=== PATIENT | male | born 1980 | race Caucasian/White ===

== ENCOUNTER 2017-10-16 09:51 | Emergency (ER) | payer OTHER, MEDICAID ==
[~2017-10-16] VITALS: Ht 170.2 cm; Wt 68.0 kg
[~2017-10-16 09:51] MED LIST: ACETAMINOPHEN-1 EAC1 PO; AMOXICILLIN 50500 MG PO; CELEXA 20 MG TA20 MG; CIPROFLOXACIN500 M1 PO; CITRATE OF MAG296 ML PO; CLONAZEPAM; DARVOCET-N 1001 EACH PO; FLOMAX PO; HYDROCODONE-AP1 EAC6 PO; IBUPROFEN 800800 M1 PO; KEPPRA 500 MG500 M1 PO; LEXAPRO; NOHOMEMEDICATIONS; NORCO 5-325 TA1 EACH PO; PERCOCET 5-3251 EACH PO; PHENERGAN 25 MG25 M1 PO; PHENERGAN25 MG RE; REMERON 30 MG T30 M1; RISPERIDONE 1 MG1 MG; SENNA; TAMSULOSIN HCL0.4 MG PO; XANAX 0.5 MG0.5 MG
[2017-10-16] MEDS ORDERED: CLONAZEPAM 1 MG1 M1 PO (10:08)
[2017-10-16 10:16] LABS: URINE BILIRUBIN NEGATIVE (Negative); URINE BLOOD NEGATIVE (Negative); URINE CLARITY CLEAR; URINE COLOR YELLOW; URINE GLUCOSE-RANDOM NEGATIVE (Negative); URINE KETONES NEGATIVE (Negative); URINE LEUKOCYTES-REFLEX NEGATIVE (Negative); URINE NITRITE-REFLEX NEGATIVE (Negative); URINE PROTEIN NEGATIVE (Negative); URINE UROBILINOGEN 0.2 E.U./dl (0.2-1.0)
[2017-10-16 10:16] LABS: ABSOLUTE EOSINOPHILS 0.1 thou/uL (0.0-0.7); ABSOLUTE LYMPHOCYTES 1.8 thou/uL (0.8-5.3); ABSOLUTE MONOCYTES 0.4 thou/uL (0.0-1.2); ABSOLUTE NEUTROPHILS 5.2 thou/uL (1.6-8.1); BASOPHILS 0.6 %; EOSINOPHILS 1.8 %; HEMATOCRIT 54.5 % (42.0-52.0); HEMOGLOBIN 18.4 gm/dL (14.0-18.0); LYMPHOCYTES 24.2 %; MCHC 33.8 g/dL (28.0-37.0); MCV 94.7 fL (80.0-100.0); MONOCYTES 5.2 %; MPV 7.9 fl. (7.2-11.1); NUCLEATED RBCS 0 /100WBC; PLATELET COUNT* 250 thou/uL (150-400); POLYS 68.2 %; RBC 5.75 mil/uL (4.50-6.00); RDW-CV 13.3 % (10.5-14.5); WBC 7.6 thou/uL (4.0-11.0)
[2017-10-16 10:40] LABS: CALCIUM 10.4 mg/dL (8.5-10.1); CREATININE 1.1 mg/dL (0.6-1.3); POTASSIUM 4.9 mmol/L (3.5-5.1)
[2017-10-16 10:44] LABS: ALBUMIN 4.3 g/dL (3.4-5.0); TOTAL BILIRUBIN 0.6 mg/dL (<0.1-1.0); TOTAL PROTEIN 8.2 g/dL (6.4-8.2)
[2017-10-16 11:17] LABS: AMP/METHAMP Negative (Negative); BARBITURATES Negative (Negative); BENZODIAZEPINES POSITIVE (Negative); COCAINE Negative (Negative); METHADONE Negative (Negative); OPIATES Negative (Negative); PCP Negative (Negative); THC POSITIVE (Negative)
[2017-10-16 12:00] LABS: SALICYLATE 4.4 mg/dL (2.8-20.0)
[2017-10-16 12:01] LABS: ACETAMINOPHEN < 2 ug/mL (10-30); ALCOHOL < 10 mg/dL (<10)
[2017-10-17 15:32] VITALS: BP 114/85
== END 2017-10-17 15:42 | disposition home or self-care (01) ==
LOC: M.ERS 09:51
PROVIDERS: Emergency Medicine Emergency Medical Services
DX: R45.851 Suicidal ideations (principal); F32.9 Major depressive disorder, single episode, unspecified; F41.9 Anxiety disorder, unspecified; Z87.442 Personal history of urinary calculi; Z79.899 Other long term (current) drug therapy

== ENCOUNTER → 2017-11-04 | Outpatient (CLI) | payer OTHER, MEDICAID ==
[~2017-11-04] MED LIST changes: +CLONAZEPAM 1 MG1 M1 PO; +NORCO 5-325 TA1 EAC1 PO; +VITAMIN B-12500 MCG PO
== END ==
LOC: M.RAD 11:50
DX: R07.81 Pleurodynia (principal); R07.89 Other chest pain; R56.9 Unspecified convulsions; W19.XXXA Unspecified fall, initial encounter

== ENCOUNTER 2017-11-17 17:48 | Emergency (ER) | payer OTHER, MEDICAID ==
[~2017-11-17] VITALS: Ht 170.2 cm; Wt 68.0 kg
[~2017-11-17 17:48] MED LIST changes: -NORCO 5-325 TA1 EAC1 PO; -VITAMIN B-12500 MCG PO
[2017-11-17] MEDS ORDERED: VITAMIN B-12500 MCG PO (18:08)
[2017-11-17] MEDS ORDERED: NORCO 5-325 TA1 EAC1 PO (19:00)
[2017-11-17 19:31] VITALS: BP 119/70
== END 2017-11-17 19:33 | disposition home or self-care (01) ==
LOC: M.ERS 17:48
DX: S42.002A Fracture of unspecified part of left clavicle, initial encounter for closed fracture (principal); F31.9 Bipolar disorder, unspecified; F41.9 Anxiety disorder, unspecified; Z87.442 Personal history of urinary calculi; Z88.8 Allergy status to other drugs, medicaments and biological substances; W10.8XXA Fall (on) (from) other stairs and steps, initial encounter; Y93.89 Activity, other specified; Y92.89 Other specified places as the place of occurrence of the external cause; Y99.8 Other external cause status

== ENCOUNTER 2018-06-05 18:34 | Emergency (ER) | payer OTHER, MEDICAID ==
[~2018-06-05] VITALS: Ht 172.7 cm; Wt 72.6 kg
[~2018-06-05 18:34] MED LIST changes: +NORCO 5-325 TA1 EAC1 PO; +VITAMIN B-12500 MCG PO
[2018-06-05 19:21] LABS: ABSOLUTE EOSINOPHILS 0.2 thou/uL (0.0-0.7); ABSOLUTE LYMPHOCYTES 1.2 thou/uL (0.8-5.3); ABSOLUTE MONOCYTES 0.5 thou/uL (0.0-1.2); ABSOLUTE NEUTROPHILS 7.3 thou/uL (1.6-8.1); BASOPHILS 0.5 %; EOSINOPHILS 2.6 %; HEMATOCRIT 39.9 % (42.0-52.0); HEMOGLOBIN 13.2 gm/dL (14.0-18.0); MCH 30.7 pg (26.0-34.0); MCHC 33.2 g/dL (28.0-37.0); MCV 92.4 fL (80.0-100.0); MONOCYTES 5.5 %; MPV 7.6 fl. (7.2-11.1); NUCLEATED RBCS 0 /100WBC; PLATELET COUNT* 229 thou/uL (150-400); POLYS 78.4 %; RBC 4.32 mil/uL (4.50-6.00); WBC 9.3 thou/uL (4.0-11.0)
[2018-06-05 19:39] LABS: ALBUMIN 3.1 g/dL (3.4-5.0); CALCIUM 9.8 mg/dL (8.5-10.1); CREATININE 0.9 mg/dL (0.6-1.3); POTASSIUM 3.6 mmol/L (3.5-5.1); TOTAL BILIRUBIN 0.1 mg/dL (<0.1-1.0); TOTAL PROTEIN 6.7 g/dL (6.4-8.2)
[2018-06-05] MEDS ORDERED: CLEOCIN HCL300 MG PO (20:40)
[2018-06-05] MEDS ORDERED: NORCO 5-325 TA1 EACH PO (20:40)
[2018-06-05] MEDS ORDERED: NAPROSYN500 MG PO (20:40)
[2018-06-05 21:05] VITALS: BP 149/92
== END 2018-06-05 21:09 | disposition home or self-care (01) ==
LOC: M.ERS 18:34
PROVIDERS: Nurse Practitioner Family
DX: K04.7 Periapical abscess without sinus (principal); F31.9 Bipolar disorder, unspecified; F41.9 Anxiety disorder, unspecified; Z88.8 Allergy status to other drugs, medicaments and biological substances; Z87.442 Personal history of urinary calculi

== ENCOUNTER 2018-07-18 00:39 | Emergency (ER) | payer OTHER, MEDICAID ==
[~2018-07-18] VITALS: Ht 167.6 cm; Wt 69.2 kg
--- NOTE | ~2018-07-18 | CON ---
[address] [address] CONSULTATION Name: COURTNEYMONROE M [id number] Admission: 07/18/18 Attend Phys: Discharge: 07/18/18 Date of : 80 Report #: [id number] THIS REPORT FOR: //name// CC: Maury Eubanks Lad DICTATED BY: Jason Fiore DO DATE OF SERVICE: 07/18/2018 HISTORY OF PRESENT ILLNESS: This is a 37-year-old male who presented to the ED for evaluation of his right ankle. He states he was walking in the [place] when he slipped and fell and hurt his ankle. He attempted to walk on after this and was unable to bear weight. He noted a deformity to the ankle. He denies any numbness or tingling of the right lower extremity. He denies any pain to any other extremity. He denies knee pain. PAST MEDICAL HISTORY: Significant for suicidal ideation, bipolar disorder, anxiety, epilepsy, depression and kidney stones. PAST SURGICAL HISTORY: None. FAMILY HISTORY: Noncontributory. SOCIAL HISTORY: Smokes 1/2 pack a day of cigarettes and occasional marijuana use. Denies alcohol use. MEDICATIONS: Clonazepam. ALLERGIES: KEPPRA AND ANTIHISTAMINES. REVIEW OF SYSTEMS: A 12-point review of systems obtained and negative except for HPI. PHYSICAL EXAMINATION: VITAL SIGNS: Height 167 cm, weight 69 kilograms, pulse 103, blood pressure 145/79. GENERAL: Alert, in no acute distress. HEENT: Head: Normocephalic, atraumatic. Eyes: Extraocular movements intact. Ears: Normal hearing. Nose: Nares patent. NECK: Supple, nontender. BACK: Nontender. LUNGS: No respiratory distress, no accessory muscle use. CARDIOVASCULAR: Normal peripheral perfusion. ABDOMEN: Soft, nontender. NEUROLOGIC: Gross [place] [address] CONSULTATION Name: MONROE VALDEZ Room: [facility]#: [id number] Admission: 07/18/18 Attend Phys: Discharge: 07/18/18 Date of : 80 Report #: [id number] SKIN: Warm and dry. PSYCHIATRIC: Normal mood and affect. MUSCULOSKELETAL: On examination of the right lower extremity, there is obvious deformity to the right ankle. There are no open wounds. There is no skin tenting. There is a palpable dorsalis pedis and posterior tibialis pulse. Sensation is intact to light touch throughout the entire right lower extremity. Compartments are soft and compressible. There is no pain with passive stretch. Motor is intact to flexion and extension of all toes. The foot appears warm and well perfused. RADIOGRAPHS: Multiple views of the right ankle were obtained in the Emergency Department demonstrating a supination external rotation bimalleolar ankle fracture dislocation. Post-reduction radiographs demonstrate improved alignment. IMPRESSION: Right bimalleolar ankle fracture dislocation. PLAN: Findings discussed in detail with the patient today. We did recommend closed reduction under conscious sedation in the Emergency Department. This was performed without complication. He was placed in a well-padded AO splint. We discussed that this injury will need operative intervention. He did have some significant soft tissue swelling noted on exam today. We discussed that we need to allow the swelling to subside prior to proceeding with any operative intervention. We will have him maintain the splint and nonweightbearing to the right lower extremity. We will have him follow up in the orthopedic clinic in 1 week for further surgical planning. PROCEDURE NOTE: Conscious sedation was provided by the ER physician. Closed reduction was performed of the right ankle. A well-padded AO splint was then applied. Post-reduction radiographs were taken, which demonstrated acceptable reduction of the fracture dislocation. Neurovascular status was unchanged post reduction. By: [id number] Pedro DO /marina
[~2018-07-18 00:39] MED LIST changes: +CLEOCIN HCL300 MG PO; +NAPROSYN500 MG PO
[2018-07-18] MEDS ORDERED: HYDROCODONE-AP1 EAC6 PO (02:02)
[2018-07-18 03:28] VITALS: BP 127/83
== END 2018-07-18 03:28 | disposition home or self-care (01) ==
LOC: M.ERS 00:39
DX: S82.841A Displaced bimalleolar fracture of right lower leg, initial encounter for closed fracture (principal); F41.9 Anxiety disorder, unspecified; F31.9 Bipolar disorder, unspecified; F17.210 Nicotine dependence, cigarettes, uncomplicated; Z88.8 Allergy status to other drugs, medicaments and biological substances; Z87.442 Personal history of urinary calculi; W18.39XA Other fall on same level, initial encounter; Y93.89 Activity, other specified; Y92.89 Other specified places as the place of occurrence of the external cause; Y99.8 Other external cause status

== ENCOUNTER 2018-07-21 18:06 | Inpatient (IN) | payer OTHER, MEDICAID ==
[~2018-07-21] VITALS: Ht 170.2 cm; Wt 70.3 kg
[2018-07-21 18:19] VITALS: BP 141/87
[2018-07-21 19:37] LABS: ABSOLUTE EOSINOPHILS 0.1 thou/uL (0.0-0.7); ABSOLUTE LYMPHOCYTES 1.1 thou/uL (0.8-5.3); ABSOLUTE MONOCYTES 0.4 thou/uL (0.0-1.2); ABSOLUTE NEUTROPHILS 3.3 thou/uL (1.6-8.1); BASOPHILS 0.5 %; EOSINOPHILS 1.7 %; HEMATOCRIT 33.8 % (42.0-52.0); HEMOGLOBIN 11.5 gm/dL (14.0-18.0); LYMPHOCYTES 22.5 %; MCH 31.2 pg (26.0-34.0); MCHC 33.9 g/dL (28.0-37.0); MONOCYTES 8.7 %; MPV 7.8 fl. (7.2-11.1); NUCLEATED RBCS 0 /100WBC; PLATELET COUNT* 238 thou/uL (150-400); POLYS 66.6 %; RBC 3.68 mil/uL (4.50-6.00); RDW-CV 13.7 % (10.5-14.5); WBC 4.9 thou/uL (4.0-11.0)
[2018-07-21 19:43] LABS: CALCIUM 9.1 mg/dL (8.5-10.1); CREATININE 0.9 mg/dL (0.6-1.3); POTASSIUM 3.6 mmol/L (3.5-5.1)
[2018-07-21 19:47] LABS: ALBUMIN 3.5 g/dL (3.4-5.0); TOTAL BILIRUBIN 0.5 mg/dL (<0.1-1.0); TOTAL PROTEIN 6.7 g/dL (6.4-8.2)
[2018-07-21 19:48] LABS: APTT 28.7 Seconds (25.0-31.3); PROTIME 9.9 Seconds (9.20-11.50)
[2018-07-21 21:03] LABS: ESR (SEDRATE) 11 mm/hr (0-15)
[2018-07-21 21:58] VITALS: BP 135/85
[2018-07-21 22:00] VITALS: BP 131/75
[2018-07-22 07:41] VITALS: BP 127/84
--- NOTE | 2018-07-23 07:08 | CON ---
[address] [address] CONSULTATION Name: MONROE VALDEZ Room: [address] IN ..#: [id number] Admission: 07/21/18 Attend Phys: Mohsen Lynn MD Discharge: 07/22/18 Date of : 80 Report #: [id number] THIS REPORT FOR: //name// CC: Maury Lynn DATE OF SERVICE: 07/22/2018 HISTORY OF PRESENT ILLNESS: This is a 37-year-old gentleman who was admitted through the Emergency Room with pain and prior history of fracture to his right lower extremity ankle area. The patient's initial presentation to this hospital was 07/18/2018, had a fracture dislocation of his ankle on the right leg, appropriately had that reduced, splinted and was released at that time. The patient was to be seen later by Orthopedics. In any event, the patient presents back to the hospital with this visit. Actually in the Emergency Room, he had to take it down and look at his legs. He was having some increasing pain in it. He was also told on the prior visit of course with a fractured ankle not to walk on it and he admits to them that he had been walking on it. He tells me he lives at home with his mother. He is down in the basement and has to go down steps to get there. He can somehow do that without putting weight on the leg, but then also slipped on a slick floor and fell on to that leg again. The patient's initial injury was when he was out in the field, apparently had to crawl about a half mile through mud and was weightbearing on this extremity initially anyway to get to the area where he could seek care. In any event, today this patient is somewhat agitated, just concerned about his ankle area, the swelling that he has, the pain that he has. He had been on Toradol initially for some of his pain control. Prior to that, was on some hydrocodone as well. He is not on antibiotics, but will necessarily need antibiotics and orders will be placed for that. In any event, today he will have new radiographs taken of his ankle again after splint was reapplied. The patient as far as his history goes otherwise, he does have a very complicated history. PAST MEDICAL HISTORY: Numerous for depression, bipolar, multiple psychotic hospitalizations with bouts of psychosis and john and depression as well. He is focusing on multiple renal stones, as he has got about 200. He has had seizure disorder states it was 7 a day, now it is down to about one a day and that is about as good as he can get. ALLERGIES: CODEINE HE QUOTED AND ANTIHISTAMINES WELL, HE QUOTED WITH THAT. SOCIAL HISTORY: Per the ER records as well, he has recreational use of marijuana and meth. No alcohol consumption. REVIEW OF SYMPTOMS: CONSTITUTIONAL: He denies any fevers or chills. RESPIRATORY: Denies any cough, [place] [address] CONSULTATION Name: MONROE VALDEZ Room: [address] IN [facility]#: [id number] Admission: 07/21/18 Attend Phys: Mohsen Lynn MD Discharge: 07/22/18 Date of : 80 Report #: [id number] CARDIOVASCULAR: Denies any chest pains currently. NEUROLOGIC: Denies any tingling to the lower extremities or the upper extremities. He does demonstrate musculoskeletal complaint of pain and swelling in his right lower extremity. PHYSICAL EXAMINATION: VITAL SIGNS: His latest pulse is 99, respirations 14, 141/87 is BP, 100% O2 sat. He did have a hemoglobin of 11.5 with a white count that was 4.9 with normal differential. BUN slightly elevated at 20. C-reactive protein 73.2 and his ESR was 11. GENERAL: He is definitely alert and is oriented. He is somewhat cooperative. He comes in and out of being able to talk to him appropriately and then at times he just disgruntled and complains that people have not listened to him. At this point in time, otherwise, the patient on the other hand has normal facial appearance. HEENT: Normocephalic. Sclerae white. Mucous membranes are moist. NECK: Soft. CHEST: Demonstrates respiratory normal rate with no accessory use of muscles are detected, no audible wheezes are noted. ABDOMEN: Flat. EXTREMITIES: He has definitely good pulses upper extremity. MUSCULOSKELETAL: The entire splint dressing, he started removing it and has been walking in the room, so we took it off anyway to examine his leg on the right side. Lower extremity on the left side is completely normal on clinical appearance and with motion. The right lower extremity from the knee down demonstrates some ecchymosis, soft tissue edema starting on the proximal lower leg region with all soft compartments; however, but he does demonstrate large numerous edema blisters. Most of them had been popped, some of these extend 10 cm x 10 cm in length to the medial mid calf region, also posterior medial demonstrates at least a 6 cm circumferential area of some grade 2 at least skin loss area just posterior to the medial malleolus. He demonstrates also likewise grade 1 ulcerated blister edema changes to the dorsal left foot just below the toe areas. On the lateral side, he has small blister that is evident beneath the fibula region and also some extending proximally towards the fibula. The patient can wiggle his toes appropriately. Sensation is totally normal to this foot. All compartments again are soft. Majority of his pain is on the medial side. The patient at this point in time otherwise, his radiographs taken did demonstrate previous reduction that was appropriate position. New x-rays will be taken today as we put him in a well-padded Pérez posterior splint dressing with a coaptation splint adjacent to that as well. We elevated him on 2 pillows. Overall, clinical impression is complex trimalleolar fracture dislocation history with significant edema blisters and early cellulitis to the lower [place] [address] CONSULTATION Name: MONROE VALDEZ Room: [address] IN [facility].#: [id number] Admission: 07/21/18 Attend Phys: Mohsen Lynn MD Discharge: 07/22/18 Date of : 80 Report #: [id number] PLAN: We had lengthy discussion for at least 30 minutes in the room while we were examining him and talking to him. I told him more than likely he needs to probably be here a couple of days just to observe and watch this, appropriately get him some antibiotics, started on this and keep that leg elevated in a controlled setting and then at some point in time over the next 2 weeks to 3, hopefully fracture can be fixated. I did, initially upon seeing the clinical appearance of this from the get go entering the room, I told him how he did have a serious injury where he had to crawl and walk through that field to get to seek care and then just from the nature of the injury and the fracture dislocation that these edema blisters are secondary to that as well that there is a possibility he may lose that lower leg. The patient at times says, "you cannot just take that leg off and get going on," but I told him our goal is to get this treated first and save that as last resort by all means. He is seeking possibility just leaving AMA. He says he is not sure he can even spend one night here in this hospital, so I said at least let us do what we need to do to appropriately protect this ankle and that is splinting him today and he was in agreement with that at least. The patient will be given pain medication of course while he is here, we will get him started on the antibiotics and just see where he leads us. I did tell him we had geriatric social worker that is definitely available to help him for any potential transition type things that we need to do to help him as well to seek better care for the lower extremity and deal with his family situations that sound like they are numerous that he is trying to deal with. In any event, if available a psych consult would be appropriate for this gentleman as well as I am not sure when his last one was. From the orthopedic standpoint, we will watch and observe him and definitely follow him very closely for this. We will get a post-splint x-ray and see what that shows. If there is subluxation of any major degrees and/or if there is dislocation, he would have to go to the OR to have it reduced under sedation and then splint reapplied. At this point in time, I am not comfortable to put an external fixator on this leg. I definitely could do it without any problem, but his situation at home did not leave him the best options to care for this. Possibility of walking on next fix could be even worse. Again, it is my pleasure seeing and taking care of this gentleman today. We will be available for the entire hospital duration. <ELECTRONICALLY SIGNED> By: Jose Mendez DO 07/23/18 [id number] mya Cooper
--- NOTE | 2018-07-23 14:08 | CON ---
[address] [address] CONSULTATION Name: MONROE VALDEZ Room: [address] IN ..#: [id number] Admission: 07/21/18 Attend Phys: Mohsen Lynn MD Discharge: 07/22/18 Date of : 80 Report #: [id number] THIS REPORT FOR: //name// CC: Maury Lynn DATE OF SERVICE: 07/22/2018 INFECTIOUS DISEASE CONSULTATION ATTENDING PHYSICIAN: Mohsen Lynn MD REASON FOR EVALUATION: Post complicated ankle fracture with immobilization via cast felt to be secondarily infected. HISTORY OF PRESENT ILLNESS: Chart reviewed, patient examined. This is a 37-year-old man with uncontrolled bipolar disorder, who presented to the Emergency Room earlier this month on the apparently sustaining an ankle fracture. This was reduced, casted, was tentatively scheduled for surgery at a later date. Apparently due to his situation and reportedly he is homeless, he has been walking on it. It continued to cause him significant amount of pain. He noted he had bullous lesions and is felt to have increasing inflammation. It is not clear that he had fevers. He is somewhat tangential and difficult to get a history from. He reappeared and was subsequently admitted. Due to concern about infectious complication, he was started empirically on combination therapy with ceftriaxone and vancomycin. Denies any significant pulmonary or gastrointestinal related complaints, states he had been a long period without eating too much. He has more recently had had access to some food. ALLERGIES: To ANTIHISTAMINES and LEVETIRACETAM. MEDICINE: Include enoxaparin, divalproex, nicotine, acetaminophen, Haldol, ceftriaxone, hydrocodone, vancomycin, clonazepam, ondansetron. PAST MEDICAL HISTORY: As noted above, history of bipolar, apparently has polysubstance abuse as well, anxiety, seizure disorder, and history of renal lithiasis. SOCIAL HISTORY: Smokes cigarettes. No ethanol. FAMILY HISTORY: Noncontributory. REVIEW OF SYSTEMS: Limited as above. PHYSICAL EXAMINATION: GENERAL: He is alert, cooperative. He does make eye contact, [place] [address] CONSULTATION Name: COURTNEYMONROE M Room: [address]#: [id number] Admission: 07/21/18 Attend Phys: Mohsen Lynn MD Discharge: 07/22/18 Date of : 80 Report #: [id number] somewhat on edge, appears undernourished. VITAL SIGNS: Temperature 98.5, pulse 84, respirations 16, blood pressure 127/84. SKIN: Warm, dry. HEENT: Normocephalic. Extraocular muscles are intact. NECK: Supple. LUNGS: Diminished breath sounds. HEART: Regular. I do not appreciate any murmur. ABDOMEN: Soft, nontender, nondistended. EXTREMITIES: He has got a immobilizing compression dressing over his right lower extremity to below the knee. He has got a large bullous lesion noted on the dorsum of the foot as well as the leg. He notes there is an additional one that is not accessible on the medial malleolar site. LABORATORY AND X-RAY DATA: Electrolytes; sodium 143, potassium 3.6, chloride 107, bicarbonate is 20, anion gap of 8, BUN and creatinine 20 and 0.9, glucose of 96. LFTs are unremarkable. Albumin of 3.5. Total protein 6.5. Estimated GFR of 95. PT of 9.98, INR of 1.0, CRP of 73.2. Lactic acid of 0.6. Ankle x-ray showed medial malleolar oblique fracture through the fibula, dorsal soft tissue swelling. Sed rate was 11. CBC; white count 4.9, H and H 11.5 and 33, platelets of 238. Blood cultures are sterile thus far. ASSESSMENT: Post right ankle fracture complicated by bullous-type eruption, is difficult to ascertain. I think it is reasonable to continue empiric antimicrobial therapy, certainly at risk for infectious complications. I tried to press the importance of offloading his foot, it is not clear that he understands the gravity of the situation. <ELECTRONICALLY SIGNED> By: Jerardo Payton MD 07/23/18 1408 [id number] Payton MD /nt
== END 2018-07-22 16:50 | disposition left against medical advice (07) | DRG 603 ==
LOC: M.ERS 18:06 → M.ORTHSURG 20:27 → M.TBA-ER 20:27 → M.ORTHSURG 21:51
PROVIDERS: Nurse Practitioner Family; ADMIT Internal Medicine
PROC: 2W3LX1Z Immobilization of Right Lower Extremity using Splint (ICD-10-PCS; principal; 2018-07-21)
DX: L03.115 Cellulitis of right lower limb (principal); S82.51XA Displaced fracture of medial malleolus of right tibia, initial encounter for closed fracture; F41.9 Anxiety disorder, unspecified; F31.9 Bipolar disorder, unspecified; X58.XXXA Exposure to other specified factors, initial encounter; W10.9XXA Fall (on) (from) unspecified stairs and steps, initial encounter; F15.90 Other stimulant use, unspecified, uncomplicated; F12.90 Cannabis use, unspecified, uncomplicated; F17.210 Nicotine dependence, cigarettes, uncomplicated; G40.909 Epilepsy, unspecified, not intractable, without status epilepticus; Z87.442 Personal history of urinary calculi; Z79.1 Long term (current) use of non-steroidal anti-inflammatories (NSAID); Z88.8 Allergy status to other drugs, medicaments and biological substances; Y93.89 Activity, other specified; Y92.89 Other specified places as the place of occurrence of the external cause; Y99.8 Other external cause status; Z88.6 Allergy status to analgesic agent; Z59.0 Homelessness; Z91.14 Patient's other noncompliance with medication regimen

== ENCOUNTER 2018-10-22 23:16 | Emergency (ER) | payer OTHER, MEDICAID ==
[~2018-10-22] VITALS: Ht 172.7 cm; Wt 69.4 kg
[2018-10-22 23:53] LABS: URINE BILIRUBIN NEGATIVE (Negative); URINE BLOOD NEGATIVE (Negative); URINE CLARITY CLEAR; URINE COLOR YELLOW; URINE GLUCOSE-RANDOM NEGATIVE (Negative); URINE KETONES NEGATIVE (Negative); URINE LEUKOCYTES NEGATIVE (Negative); URINE NITRITE NEGATIVE (Negative); URINE PROTEIN NEGATIVE (Negative); URINE UROBILINOGEN 0.2 E.U./dl (0.2-1.0)
[2018-10-23 00:01] LABS: HEMATOCRIT 37.2 % (42.0-52.0); HEMOGLOBIN 12.8 gm/dL (14.0-18.0); MCH 31.3 pg (26.0-34.0); MCHC 34.4 g/dL (28.0-37.0); MCV 90.9 fL (80.0-100.0); MPV 7.4 fl. (7.2-11.1); RBC 4.1 mil/uL (4.50-6.00); RDW-CV 14.5 % (10.5-14.5); WBC 6.7 thou/uL (4.0-11.0)
[2018-10-23 00:01] LABS: AMP/METHAMP Negative (Negative); BARBITURATES Negative (Negative); BENZODIAZEPINES POSITIVE (Negative); COCAINE Negative (Negative); METHADONE Negative (Negative); OPIATES Negative (Negative); PCP Negative (Negative); THC POSITIVE (Negative)
[2018-10-23 00:09] LABS: CALCIUM 9.3 mg/dL (8.5-10.1); POTASSIUM 4.1 mmol/L (3.5-5.1)
[2018-10-23 00:14] LABS: ALBUMIN 3.3 g/dL (3.4-5.0); TOTAL BILIRUBIN 0.1 mg/dL (<0.1-1.0); TOTAL PROTEIN 6.5 g/dL (6.4-8.2)
[2018-10-23 00:18] LABS: ACETAMINOPHEN < 2 ug/mL (10-30); SALICYLATE < 2.8 mg/dL (2.8-20.0)
[2018-10-23 00:19] LABS: ALCOHOL < 10 mg/dL (<10)
--- NOTE | 2018-10-23 11:22 | EKG ---
[place] [address] ELECTROCARDIOGRAM REPORT Name: MONROE VALDEZ Room: [facility]#: [id number] Admission: 10/22/18 Attend Phys: Discharge: Date of : 80 Report #: [id number] THIS REPORT FOR: //name// [facility] ED Test Date: 2018-10-22 Test Time: 23:51:06 Pat Name: MONROE VALDEZ Department: Room: Gender: Presales Engineer: ANKUR : 1980 Requested By: Helen Kong Order Number: [id number] MD: Maury Camilo Measurements Intervals [place] Rate: 67 P: 22 OK: 145 QRS: 26 QRSD: 98 T: 60 QT: 381 QTc: 403 Interpretive Statements Sinus rhythm ST elev, probable normal early repol pattern No previous ECG available for comparison Electronically Signed On 10-23-2018 11:21:56 CDT by Maury Camilo [email or web address] <ELECTRONICALLY SIGNED> By: Maury Camilo MD, [facility] 10/23/18 1121 2351 2351 Maury Camilo MD, FACC /EPI
[2018-10-23 14:26] VITALS: BP 112/65
== END 2018-10-23 14:27 ==
LOC: M.ERS 23:16
PROVIDERS: Personal Emergency Response Attendant
DX: F32.9 Major depressive disorder, single episode, unspecified (principal); M25.571 Pain in right ankle and joints of right foot; M25.471 Effusion, right ankle; F41.9 Anxiety disorder, unspecified; F17.200 Nicotine dependence, unspecified, uncomplicated; Z87.442 Personal history of urinary calculi; Z86.69 Personal history of other diseases of the nervous system and sense organs; Z88.1 Allergy status to other antibiotic agents

== ENCOUNTER 2019-07-11 18:40 | Emergency (ER) | payer OTHER, MEDICAID ==
[~2019-07-11] VITALS: Ht 167.6 cm; Wt 65.8 kg
[2019-07-11 19:05] LABS: HEMATOCRIT 42.9 % (42.0-52.0); HEMOGLOBIN 14.9 gm/dL (14.0-18.0); MCH 31.6 pg (26.0-34.0); MCHC 34.8 g/dL (28.0-37.0); MCV 90.7 fL (80.0-100.0); MPV 7.3 fl. (7.2-11.1); RBC 4.73 mil/uL (4.50-6.00); WBC 6.1 thou/uL (4.0-11.0)
[2019-07-11 19:07] LABS: URINE BILIRUBIN NEGATIVE (Negative); URINE BLOOD 1+ (Negative); URINE CLARITY CLEAR; URINE COLOR YELLOW; URINE GLUCOSE-RANDOM NEGATIVE (Negative); URINE KETONES NEGATIVE (Negative); URINE LEUKOCYTES NEGATIVE (Negative); URINE NITRITE NEGATIVE (Negative); URINE PROTEIN NEGATIVE (Negative); URINE UROBILINOGEN 0.2 E.U./dl (0.2-1.0)
[2019-07-11 19:15] LABS: AMP/METHAMP POSITIVE (Negative); BARBITURATES Negative (Negative); BENZODIAZEPINES POSITIVE (Negative); COCAINE Negative (Negative); METHADONE Negative (Negative); OPIATES Negative (Negative); PCP Negative (Negative); THC POSITIVE (Negative)
[2019-07-11 19:22] LABS: CALCIUM 9.7 mg/dL (8.5-10.1); CREATININE 1.3 mg/dL (0.6-1.3); POTASSIUM 3.5 mmol/L (3.5-5.1)
[2019-07-11 19:28] LABS: ALBUMIN 4.2 g/dL (3.4-5.0); TOTAL BILIRUBIN 0.8 mg/dL (<0.1-1.0); TOTAL PROTEIN 7.6 g/dL (6.4-8.2)
[2019-07-11 19:33] LABS: BACTERIA 1-9 Few /HPF (None Seen); CASTS None Seen /LPF (None Seen); CRYSTALS None Seen /LPF (None Seen); SQUAMOUS 0-3 Few /LPF (0-3); URINE RBC 0-2 Rare /HPF (0-2); URINE WBC 0-5 Rare /HPF (0-5)
[2019-07-11 19:41] LABS: ALCOHOL < 10 mg/dL (<10); SALICYLATE 3.1 mg/dL (2.8-20.0)
[2019-07-11 19:42] LABS: ACETAMINOPHEN < 2 ug/mL (10-30)
[2019-07-13 12:42] VITALS: BP 121/79
== END 2019-07-13 12:42 ==
LOC: M.ERS 18:40
PROVIDERS: Personal Emergency Response Attendant
DX: F15.10 Other stimulant abuse, uncomplicated (principal); R45.851 Suicidal ideations; Z88.8 Allergy status to other drugs, medicaments and biological substances

== ENCOUNTER 2019-07-20 02:27 | Emergency (ER) | payer OTHER, MEDICAID ==
[~2019-07-20] VITALS: Ht 172.7 cm; Wt 72.6 kg
[2019-07-20 03:12] VITALS: BP 154/86
== END 2019-07-20 03:15 | disposition home or self-care (01) ==
LOC: M.ERS 02:27
DX: M54.5 Low back pain (principal); Z88.6 Allergy status to analgesic agent; Z88.8 Allergy status to other drugs, medicaments and biological substances

== ENCOUNTER 2020-03-04 20:24 | Emergency (ER) | payer OTHER, MEDICAID ==
[~2020-03-04] VITALS: Ht 167.6 cm; Wt 68.0 kg
[2020-03-04 21:31] LABS: URINE BILIRUBIN NEGATIVE (Negative); URINE BLOOD TRACE (Negative); URINE CLARITY CLEAR; URINE COLOR YELLOW; URINE GLUCOSE-RANDOM NEGATIVE (Negative); URINE KETONES NEGATIVE (Negative); URINE LEUKOCYTES NEGATIVE (Negative); URINE NITRITE NEGATIVE (Negative); URINE PROTEIN NEGATIVE (Negative); URINE SPECIFIC GRAVITY 1.015 (1.005-1.030); URINE UROBILINOGEN 0.2 E.U./dl (0.2-1.0)
[2020-03-04 21:41] LABS: HEMATOCRIT 40.1 % (42.0-52.0); HEMOGLOBIN 13.4 gm/dL (14.0-18.0); MCH 31.4 pg (26.0-34.0); MCHC 33.5 g/dL (28.0-37.0); MCV 93.9 fL (80.0-100.0); MPV 7.4 fl. (7.2-11.1); RBC 4.27 mil/uL (4.50-6.00); RDW-CV 13.7 % (10.5-14.5); WBC 6.8 thou/uL (4.0-11.0)
[2020-03-04 21:42] LABS: AMP/METHAMP Negative (Negative); BARBITURATES Negative (Negative); BENZODIAZEPINES POSITIVE (Negative); COCAINE Negative (Negative); METHADONE Negative (Negative); OPIATES Negative (Negative); PCP Negative (Negative); THC POSITIVE (Negative)
[2020-03-04 21:55] LABS: CALCIUM 10.1 mg/dL (8.5-10.1); POTASSIUM 4.1 mmol/L (3.5-5.1)
[2020-03-04 21:58] LABS: SALICYLATE 3.2 mg/dL (2.8-20.0)
[2020-03-04 22:00] LABS: ALBUMIN 3.6 g/dL (3.4-5.0); TOTAL BILIRUBIN 0.1 mg/dL (<0.1-1.0); TOTAL PROTEIN 6.7 g/dL (6.4-8.2)
[2020-03-04 22:03] LABS: ACETAMINOPHEN < 2 ug/mL (10-30); ALCOHOL < 10 mg/dL (<10)
[2020-03-08 01:03] LABS: URINE BILIRUBIN NEGATIVE (Negative); URINE BLOOD NEGATIVE (Negative); URINE CLARITY CLEAR; URINE COLOR YELLOW; URINE GLUCOSE-RANDOM NEGATIVE (Negative); URINE KETONES NEGATIVE (Negative); URINE LEUKOCYTES-REFLEX NEGATIVE (Negative); URINE NITRITE-REFLEX NEGATIVE (Negative); URINE PROTEIN TRACE (Negative); URINE UROBILINOGEN 0.2 E.U./dl (0.2-1.0)
[2020-03-08 17:17] VITALS: BP 122/68
== END 2020-03-08 17:17 | disposition short-term general hospital (02) ==
LOC: M.ERS 20:24
PROVIDERS: Emergency Medicine; Personal Emergency Response Attendant
DX: T42.4X2A Poisoning by benzodiazepines, intentional self-harm, initial encounter (principal); Z20.828 Contact with and (suspected) exposure to other viral communicable diseases; Z88.6 Allergy status to analgesic agent; Z88.8 Allergy status to other drugs, medicaments and biological substances; Y92.89 Other specified places as the place of occurrence of the external cause